=== PATIENT | male | born 1985 | race Caucasian/White ===

== ENCOUNTER 2018-10-24 20:02 | Emergency (ER) | payer SELFPAY ==
[~2018-10-24] VITALS: Ht 182.9 cm; Wt 90.7 kg
[2018-10-24 20:09] VITALS: Ht 182.9 cm; Wt 90.7 kg
[2018-10-24] MEDS ORDERED: SULFAMETHOXAZOL1 TA3 PO ×2 (20:10→21:57)
[2018-10-24] MEDS ORDERED: TORADOL10 MG PO (21:57)
[2018-10-24] MEDS ORDERED: BACTROBAN CREAM15 GM TOPICAL (21:57)
[2018-10-24 22:32] VITALS: BP 147/102
== END 2018-10-24 22:33 | disposition home or self-care (01) ==
LOC: D.ER 20:02
DX: L02.416 Cutaneous abscess of left lower limb (principal)